=== PATIENT | female | born 1960 | race Caucasian/White ===

== ENCOUNTER 2018-12-11 13:38 | Outpatient (CLI) | payer BC ==
--- NOTE | 2018-12-11 14:02 | RAD ---
RADIOGRAPH LUMBAR SPINE 2 VIEWS: DATE: 12/11/2018 HISTORY: 58-year-old female with low back pain. FINDINGS: There are 5 lumbar-type vertebrae. Alignment is normal. Vertebral body heights and disc spaces are ma intained. There is no evidence of fracture, significant osteophytes, or any other focal osseous abnormality. IMPRESSION: Normal.
--- NOTE | 2018-12-11 14:13 | BD ---
EXAM: DEXA bone density examination HISTORY: 58-year-old postmenopausal female for screening COMPARISON: None FINDINGS: L1--bone mineral density 0.808 g/sq cm; T score -1.7 L2--bone mineral density 0.903 g/sq cm; T score -1.1 L3--bone mineral density 0.674 g/sq cm; T score -3.7 L4--bone mineral density 0.875 g/sq cm; T score -1.7 Total L1-L4--bone mineral density 0.817 g/sq cm; T score -2.1 Left femoral neck--bone mineral density0.601; T score -2.2 Total proximal left femur--bone mineral density 0.885; T score -0.5 IMPRESSION: Osteopenia This patient has a 10 year WHO fracture risk of a major osteoporotic fracture of 9.2% and of a hip fracture of 1.2%.
== END 2018-12-11 13:39 | disposition home or self-care (01) ==
LOC: BICMAMMO 13:38
PROVIDERS: ATTEND Internal Medicine Rheumatology
DX: M54.89 Other dorsalgia (principal); M81.0 Age-related osteoporosis without current pathological fracture; M85.859 Other specified disorders of bone density and structure, unspecified thigh
CPT/HCPCS: 72100; 77080

== ENCOUNTER 2019-01-23 12:56 | Outpatient (CLI) | payer BC ==
[2019-01-23 14:29] LABS: INR-International Normal Ratio 0.9; PTT 28.3 SEC (22.9-36.1); Prothrombin Time 12.5 SEC (12.0-14.7)
--- NOTE | 2019-01-26 23:10 | EKG ---
Test Reason : Blood Pressure : / mmHG Vent. Rate : 067 BPM Atrial Rate : 067 BPM P-R Int : 120 ms QRS Dur : 090 ms QT Int : 430 ms P-R-T Axes : 059 -11 072 degrees QTc Int : 454 ms Normal sinus rhythm Normal ECG Confirmed by JORDYN DENTON M.D. ([id number]) on 01/26/2019 11:09:43 PM Referred By: ANISHA Confirmed By:JORDYN DENTON M.D.
== END 2019-01-23 12:57 | disposition home or self-care (01) ==
LOC: LABBT 12:56
PROVIDERS: ATTEND Urology
DX: Z01.818 Encounter for other preprocedural examination (principal); N20.0 Calculus of kidney
CPT/HCPCS: 81001; 85610; 85730; 87086; 93005; 93010

== ENCOUNTER 2019-01-26 07:07 | Day surgery (SDC) | payer BC ==
[2019-01-23 13:00] VITALS: BMI 19.3
[2019-01-26] MEDS ORDERED: Iothalamate Meglumine 60% 50 ML VIAL FS ONE ×2 (07:19→09:25)
[2019-01-26] MEDS ORDERED: Levofloxacin 500 mg/D5W 100 ml Premix Bag ONE (07:41)
[2019-01-26] MEDS ORDERED: Fentanyl 100 MCG/2 ML VIAL ONE ×4 (08:27→11:44)
[2019-01-26] MEDS ORDERED: diphenhydrAMINE 50 MG/ML VIAL ONE (08:31)
[2019-01-26] MEDS ORDERED: Midazolam HCl 2 mg/2 ml Vial ONE (08:31)
[2019-01-26] MEDS ORDERED: Scopolamine 1.5 mg/72 hour Patch ONE (08:32)
[2019-01-26] MEDS ORDERED: PROPOFOL 20 ML ONE (08:42)
--- NOTE | 2019-01-26 09:37 | RAD ---
KUB: DATE: 01/26/2019. COMPARISON: None. HISTORY: Kidney stone. FINDINGS: Prior CT examination demonstrated a 6-7 mm stone within the mid right ureter at the level of the L4 v ertebral body. That calcification is not visualized on this exam. There are 2 probable tiny calcifi cations within the right upper quadrant measuring in the 2-3 mm range suggesting small intrarenal gil culi. No stones are seen in the left upper quadrant. IMPRESSION: Probable punctate calculi on the right. Previously noted ureteral calculus is not visualized on this examination. POS: [facility]
[2019-01-26] MEDS ORDERED: Phenazopyridine HCl 97.5 MG TABLET ONE (10:45)
[2019-01-26] MEDS ORDERED: Morphine 4 MG/ML VIAL ONE (12:20)
[2019-01-26] MEDS ORDERED: HYDROcodone/Acetaminophen 5/325 mg Tablet ONE ×2 (13:40→14:22)
[2019-01-26] MEDS ORDERED: Dexamethasone 20 MG/5 ML VIAL ONE (14:35)
[2019-01-26] MEDS ORDERED: PHENYLEPHRINE-NS 100 MCG/ML 10 ML SYRINGE ONE (14:35)
[2019-01-26] MEDS ORDERED: ePHEDrine 50 MG/ML VIAL ONE (14:35)
[2019-01-26] MEDS ORDERED: Succinylcholine Chloride 20 MG/ML 10 ml SYRINGE FS ONE (14:35)
[2019-01-26] MEDS ORDERED: Lidocaine 1% PF 5 ML VIAL ONE (14:35)
[2019-01-26] MEDS ORDERED: PROPOFOL 200 MG/20 ML VIAL ONE (14:35)
[2019-01-26] MEDS ORDERED: Ondansetron PF 4 MG/2 ML Vial ONE (14:35)
[2019-01-26] MEDS ORDERED: Calcium Chloride 1 GM/10 ML Abboject SYRINGE ONE (14:35)
--- NOTE | 2019-01-26 15:13 | OP ---
DATE OF PROCEDURE: 01/26/2019 PREOPERATIVE DIAGNOSIS: A 58-year-old female with right 7 mm L4 ureteral calculi, right mid pole 3 mm renal calculi, left punctate renal calculi. POSTOPERATIVE DIAGNOSIS: A 58-year-old female with right 7 mm L4 ureteral calculi, right mid pole 3 mm renal calculi, left punctate renal calculi. PROCEDURES PERFORMED: Cystoscopy, urethral calibration and dilatation, 18- Filipino Borjas catheter placement 2-way 10 mL to leg bag gravity bag, right ureteral dilation, right retrograde pyelogram, ureteroscopy flexible, pyeloscopy, laser lithotripsy of migrated right ureteral calculi to kidney , laser lithotripsy of renal calculi, basket extraction of stone debris, 6 x 22 double-J ureteral stent placement with distal tail in situ. ANESTHESIA: General. COMPLICATIONS: None apparent. DISPOSITION: To recovery room in stable condition. SPECIMEN: Stone for chemical analysis. INTRAOPERATIVE FINDINGS: 1. Urethral stenosis, and vaginal atrophy difficulty passing 22-Filipino scope, urethral calibration 14 to 16-Filipino, subsequently dilated with female dilators to 24. 2. Right proximal ureteral calculi migrated into the upper pole, treated successfully. INDICATIONS FOR THE PROCEDURE AND HISTORY: Ms Walsh is a 58-year-old female with history of recurrent kidney stone, previously underwent ESWL back in [id number] out of area, presented for evaluation of right flank pain, 7 mm proximal ureteral calculi, nonobstructing right renal calculi as above. She presents today for ureteroscopy, laser lithotripsy. She was fully informed regarding possibility of secondary procedure if unable to access the kidney, given her morbid obesity, and Hounsfield unit, advised regarding options of ureteroscopy versus ESWL. ESWL was discussed with the patient as an option, however, informed that the pain must be able to be easily visualized on KUB, which it is difficult to see. DESCRIPTION OF PROCEDURE: After an informed consent was signed, the patient taken to the operating room, placed in a dorsal lithotomy position with the genital area prepped and draped in the usual surgical sterile fashion. I attempted to pass a 22-Filipino cystoscope and she had severe vaginal atrophy with urethral stenosis. I gently passed a 17-Filipino rigid cystoscope under visual guidance. However, this was somewhat snug. We subsequently calibrated her urethra to about 14- and 16- Filipino and subsequently dilated to 24 with ease. Then, I was able to pass a 22-Filipino sheath without difficulty. The bladder was surveyed, which demonstrated no evidence of trabeculation, bladder stones or tumor of concern. Bilateral UOs in normal orthotopic position. Right ureter was intubated with a 5-Filipino open-ended catheter. Retrograde pyelogram performed demonstrating no gross filling defect per se. However, there was some hang up in the right L3-4 ureter consistent with likely stone. A 0.035 Sensor wire was placed into the right upper pole. At this time , we balloon dilated her intramural ureter in 2 segments with a 12-Filipino 4 cm [employer] apparatus. This was performed under fluoroscopic guidance atraumatically. Subsequently, we passed a 10-Filipino dual-lumen access sheath, which passed without significant issues to the level of L3 ureter. We passed a second safety wire 0.035 Super Stiff wire into the right upper pole. Subsequently, we passed an 11/13-Filipino x 28 navigator to the level of L3-L4 ureter. I was able to pass the sheath without significant issues, the flexible ureteroscope was then advanced over the Super Stiff wire. I did not see any obvious stone burden in the ureter itself. We surveyed the right collecting system demonstrating the stone did migrate into the upper pole. Using a 200 micron ball-tip fiber at energy of 0.7 joules, we laser lithotripsied the stone into multiple tiny fragments. There was a second nidus adherent to the papilla in the right mid pole which was laser lithotripsied successfully. Fragments were basket extracted, it was utilized with a VCharge basket. What remained were tiny fragments that most likely she will pass on her own dustlike debris. The ureter was surveyed, which demonstrated no evidence of ureteral stone nidus, or ureteral mucosa trauma of concern. A 6 x 22 double- J ureteral stent was then passed without significant issues and all wires were removed. As she does present with urethral stenosis, I left an 18-Filipino 10 mL urethral Borjas catheter to leg bag. She will follow up with me next week for catheter removal, stent pull under local. She is discharged with Bactrim DS one p.o. b.i.d., #24, so that we cover her until day of cysto stent pull. Myrbetriq 50 mg one p.o. daily #14 for bladder spasm, tramadol 50 mg 1 to 2 p.o. q.6 hours p.r.n., Azo p.r.n., Colace p.r.n. Note, she related a rash with Levaquin. We did provide Levaquin with her permission, which she did not have any adverse side effects of concern. She will follow up next for cysto stone pull catheter removal. Job ID: [id number] MTDD
--- NOTE | 2019-01-26 15:19 | RAD ---
RETROGRADE IVP: INDICATIONS: Intraoperative imaging during retrograde procedure and stent placement. TECHNIQUE: Two images are presented from the OR. FINDINGS: The first images shows partial opacification of the right collecting structures. The visualized right ureter was unremarkable. The second image shows a wire in the right ureter with the tip of the wire in the upper collecting structures of the right kidney. POS: [facility]
--- NOTE | 2019-01-29 16:03 | CON ---
DATE OF CONSULTATION: 01/26/2019 PRIMARY CARE PHYSICIAN: Dr. Wasserman. REASON FOR CONSULT: History of nausea, constipation, possible hallucination. HISTORY OF PRESENT ILLNESS: Ms. Walsh is a 58-year-old female with prior history of kidney stone, she underwent ESWL back in 2007 and 2008 in [place]. No subsequent surgery since then. She presented to the emergency room due to acute onset of right flank pain. CT demonstrating 7 mm proximal ureteral calculi. She underwent cysto; right ureteroscopy; laser lithotripsy; stone did migrate into the kidney, which was laser lithotripsied into tiny fragments successfully. Incidentally noted as she was found to have urethral stenosis, requiring dilation, in which her caliber was about 14-Montserr[place]ian. She did subsequently relate that she requires a "pediatric" catheter to instrument her urethra in the past. Surgery was uneventful. Due to her concern regarding ciprofloxacin and penicillin allergy, I did provide her dose with ciprofloxacin, which she tolerated well IV, however, was transitioned to Bactrim as an outpatient. She has an indwelling urethral Borjas catheter as her stricture urethral stenosis was dilated. She presents with the above complaints. She is currently hemodynamically stable, T-max is 99.3, she states that yesterday her temperature was 100.1. She has normal renal function, leukocytosis of 12 of not significant concern. UA is contaminated as it is obtained from the Borjas catheter with epithelials, positive nitrites. Cultures have been sent. She was provided Rocephin in the emergency room per ER doc. Currently, resting comfortably. States that she has been constipated, however, did have a loose bowel movement today. PAST MEDICAL HISTORY: Asthma, history of kidney stones, migraines, pneumonia, menorrhagia, bronchitis. PAST SURGICAL HISTORY: Uterine suspension in 1977, 1984, uterine ablation in August 2008, ESWL in [place] 2007 and 2008, sinus surgery, septoplasty, tonsillectomy. On January 26, 2019, she underwent cysto, urethral calibration and dilatation, right dilation of her ureter, ureteroscopy, laser lithotripsy of her migrated ureteral calculi into the kidney, a 6 x 22 double-J ureteral stent. ALLERGIES: ALLERGIC TO LEVAQUIN, RASH; TOPAMAX, KIDNEY STONES; PENICILLIN, HIVES; OXYBUTYNIN, SEVERE DRY EYES. SHE WAS ABLE TO TOLERATE CIPROFLOXACIN WITHOUT SIGNIFICANT ISSUES INTRAOPERATIVELY. CURRENTLY ON ROCEPHIN WITHOUT SIGNIFICANT ISSUES APPARENTLY. SOCIAL HISTORY: Nonsmoker. FAMILY HISTORY: Positive for asthma. PHYSICAL EXAMINATION: VITAL SIGNS: Stable. Temperature 99.3, blood pressure 168/72. GENERAL: Appears nontoxic appearing. HEENT: Grossly unremarkable. HEART: Regular rate. LUNGS: Clear. ABDOMEN: Morbidly obese, protuberant. No rigidity. No rebound. Vague suprapubic tenderness, however, this is minimal. : Borjas catheter is draining concentrated yellow urine. EXTREMITIES: No cyanosis, clubbing, or edema. PSYCHIATRIC: Appears to be appropriate and intact. No gross focal deficits appreciated. LABORATORY DATA: White count 12, hemoglobin 12. Creatinine is 1.0. UA demonstrates contaminated specimen, 7 to 10 epithelials, 11 to 20 wbc's, 20 to 50 rbc's, 100 protein, positive nitrites. Prior history of E coli in June 2017, which is pansensitive except to Bactrim and ampicillin. PERTINENT STUDIES: CT of the chest with contrast demonstrates no filling defect. This was obtained. She also complained of chest pain. CT of the abdomen and pelvis without contrast, which I reviewed myself, demonstrating right ureteral stent in good position. Tiny punctate right fragmented debris. No evidence of stone along the course of the right ureteral stent. Left punctate renal calculi. IMPRESSION: 1. Ms. Walsh is a 58-year-old female with history of recurrent kidney stone. 2. Status post right ureteroscopy, laser lithotripsy, urethral stenosis dilatation, therefore has an indwelling Borjas catheter. 3. vague chest pain. CT negative. with history of nausea and constipation. She states that with anesthesia, she usually has these events, i.e., constipation and nausea. The patient is currently being admitted for medical optimization with broad-spectrum antibiotics which I agree with Rocephin, may provide ciprofloxacin as she tolerated this uneventfully in the past. will await final culture, hydration. Expectant management with medical treatment is advised. Continue indwelling urethral Borjas catheter. Pending her clinical course. She is tentatively scheduled for outpatient cysto, right stent removal 02/05/19. Job ID: [id number] MTDD
[2019-01-30 11:11] LABS: CA Oxalate Dihydrate 10 % (.); CA Oxalate Monohydrate 85 % (.); Color Brown (.); Stone Weight 19.8 mg (.)
== END 2019-01-26 15:43 | disposition home or self-care (01) ==
LOC: SDC 07:07
PROVIDERS: ATTEND Urology
PROC: 0T768DZ Dilation of Right Ureter with Intraluminal Device, Via Natural or Artificial Opening Endoscopic (ICD-10-PCS; principal; 2019-01-26)
PROC: 0TF38ZZ Fragmentation in Right Kidney Pelvis, Via Natural or Artificial Opening Endoscopic (ICD-10-PCS; principal; 2019-01-26)
DX: N20.2 Calculus of kidney with calculus of ureter (principal); J18.9 Pneumonia, unspecified organism; J45.909 Unspecified asthma, uncomplicated; Z88.0 Allergy status to penicillin; Z88.7 Allergy status to serum and vaccine; Z88.8 Allergy status to other drugs, medicaments and biological substances; Z79.899 Other long term (current) drug therapy
CPT/HCPCS: 74018; 74420; 82365; 88300; C1758; C1769; J1200; J1956; J2250; J2270; J2704; J3010; J7620

== ENCOUNTER 2019-01-29 09:07 | Observation (INO) | payer BC ==
[2019-01-29] MEDS ORDERED: Acetaminophen 650 MG Suppository PR PRN (13:43)
[2019-01-29] MEDS ORDERED: Acetaminophen 325 MG TAB PO PRN (13:43)
[2019-01-29] MEDS ORDERED: Ondansetron PF 4 MG/2 ML Vial IVP PRN (13:43)
[2019-01-29] MEDS ORDERED: cefTRIAXone\\ROCEPHIN 1 GM in Sodium Chloride 0.9% 100 ML IVPB SCH (14:00)
[2019-01-29] MEDS: Sodium Chloride 0.9% 1,000 ML IV SCH ×2 (16:30→23:04)
--- NOTE | 2019-01-29 16:49 | HP ---
PRIMARY CARE PROVIDER: Danny Wasserman MD CHIEF COMPLAINT: Nausea and vomiting. HISTORY OF PRESENT ILLNESS: Ms. Walsh is a pleasant 58-year-old lady who was seen at [facility] on January 29, 2019. On January 26, 2019, she underwent cystoscopy, urethral calibration and dilatation, Borjas catheter placement, right retrograde pyelogram, ureteroscopy, laser lithotripsy, basket extraction of stone debris, and ureteral stent placement. She reports that following the procedure, she started having vomiting. She reports vomiting multiple times. She denies any fevers. She denies any chest pain. She denies any abdominal pain. She had normal bowel movement after the surgery. She is currently on Bactrim, but is unable to keep her medications down. She reports nausea. She has been vomiting 4 to 6 times per day. REVIEW OF SYSTEMS: All systems were reviewed and found to be negative except for pertinent positives mentioned above. PAST MEDICAL HISTORY: Hypothyroidism, fibromyalgia, osteoporosis, migraines, and nephrolithiasis. PAST SURGICAL HISTORY: Right knee replacement, right knee scope, tonsil surgery, sinus surgery, uterine ablation, and section. SOCIAL HISTORY: The patient denies tobacco use, alcohol use, or recreational drug use. FAMILY HISTORY: No family history of premature coronary artery disease. ALLERGIES: LYRICA AND PENICILLIN. CURRENT MEDICATIONS: 1. Losartan 50 mg daily. 2. Magnesium 500 mg daily. 3. Tizanidine p.r.n. 4. Gabapentin 100 mg daily. 5. Levothyroxine 75 mcg daily. 6. Venlafaxine 75 mg daily. 7. Verapamil 240 mg daily. 8. ProAir HFA 90 mcg inhalation daily. 9. Imitrex 100 mg daily. 10. [place] p.r.n. 11. Zofran p.r.n. 12. Pyridium 200 mg daily. 13. Toradol p.r.n. 14. Bactrim 2 times a day. PHYSICAL EXAMINATION: GENERAL: On examination, Ms. Walsh is awake and alert, not in acute distress. VITAL SIGNS: Blood pressure is 157/81, pulse 85, respiratory rate 18, and oxygen saturation 97% on room air. She is afebrile. EYES: No scleral icterus, no conjunctival pallor. ENT: Dry mucosal membranes. No oropharyngeal erythema or exudates. NECK: Supple, nontender, trachea is midline. RESPIRATORY: Accessory muscles of breathing are not active. Chest wall movements are symmetric bilaterally. LUNGS: Clear to auscultation without wheeze, rhonchi, or crepitations. CARDIOVASCULAR: S1 and S2 are heard, regular. Peripheral pulses palpable. ABDOMEN: Soft, distended, and nontender. Bowel sounds heard. NEUROLOGIC: Cranial nerves 2 through 12 are intact. MUSCULOSKELETAL: Power is 5/5 in all 4 extremities. SKIN: No rashes. LYMPHATIC: No cervical lymphadenopathy. PSYCHIATRIC: Normal mood, normal affect, the patient is oriented to person, place, and time. LABORATORY DATA: Ms. Walsh' labs and investigations were reviewed. She has leukocytosis with 12,100 white cells, of which 76% are neutrophils. Hemoglobin is normal. Platelet count is normal. She has normal electrolytes and normal creatinine. LFTs are normal. Urinalysis is positive for nitrite and leukocyte esterase and blood. She also has 4+ bacteria in high-power field. She had a CT angiogram of the chest, which did not show any filling defects in the pulmonary arteries. ASSESSMENT AND PLAN: Ms. Walsh is a pleasant 58-year-old lady who was seen at [facility] on January 29, 2019. Her problem list includes: 1. Sepsis: Ms. Walsh is presenting with sepsis, with heart rate greater than 90, leukocytosis and suspected urinary tract infection. She will be admitted to the hospital for further management. 2. Urinary tract infection: She has received a dose of ceftriaxone, which I will continue. We will await urine cultures. Urology Service has been consulted for opinion and help with management. 3. Nausea and vomiting: We will start the patient on parenteral antiemetics and intravenous fluids. 4. Hypothyroidism: Continue Synthroid. 5. Hypertension: Resume home medications, monitor vital signs, and titrate antihypertensives as needed. Many thanks for allowing me to participate in your patient's care. Please feel free to contact me with any questions or concerns. LEVEL OF RISK: Moderate. LEVEL OF COMPLEXITY: Moderate. Job ID: [id number]
[2019-01-29] MEDS ORDERED: Bisacodyl 10 MG SUPP PR PRN (17:02)
[2019-01-29] MEDS ORDERED: traMADol HCl 50 MG TAB PO PRN ×2 (17:04→18:40)
[2019-01-29 17:08] VITALS: BMI 38.7
[2019-01-29] MEDS ORDERED: Lorazepam 1 MG TAB PO PRN (18:40)
[2019-01-29] MEDS ORDERED: PROVENTIL INHALER 6.7 G (200 INHALATIONS) INH PRN (18:40)
[2019-01-29] MEDS: Docusate 100 MG CAP PO SCH (20:51)
[2019-01-29] MEDS: Trospium 20 MG TAB PO SCH (20:52)
[2019-01-29] MEDS ORDERED: Gabapentin 300 MG CAP PO SCH (21:00)
[2019-01-29] MEDS ORDERED: Losartan 25 MG TAB PO SCH (21:00)
[2019-01-30 05:42] LABS: #Basophils 0.1 thou/uL (0.0-0.2); #Eosinphils 0.4 thou/uL (0.0-0.7); #Lymphocytes 2.1 thou/uL (1.20-3.40); #Monocytes 0.8 thou/uL (0.11-0.59); #Neutrophils 5.6 thou/uL (1.40-6.50); %Basophils 0.8 % (0.0-1.0); %Eosinophils 4.3 % (0.0-10.0); %Lymphocytes 23.3 % (21.0-51.0); %Monocytes 9.3 % (0.0-10.0); %Neutrophils 62.3 % (42.0-75.0); Hemoglobin 12.4 g/dL (12.0-16.0); Mean Corpuscular HGB CONC 31.7 g/dL (32.0-36.0); Mean Corpuscular Hemoglobin 26.3 pg (27.0-31.0); Mean Corpuscular Volume 82.9 fL (78.0-98.0); Mean Platelet Volume 7.8 fL (7.4-10.4); Platelet Count 284 thou/uL (130-400); RBC Distribution Width 14.7 % (11.5-14.5); Red Blood Cell (RBC) Count 4.71 mill/uL (4.20-5.40); White Blood Cell (WBC) Count 8.9 thou/uL (4.8-10.8)
[2019-01-30 06:09] LABS: Anion Gap 11 mmol/L (10-20); BUN (Urea Nitrogen) 6 mg/dL (9.8-20.1); Calc. Creatinine Clearance 154 mL/min (70-130); Calcium 8.1 mg/dL (7.8-10.44); Carbon Dioxide 26 mmol/L (22-29); Chloride 108 mmol/L (98-107); Estimated GFR-MDRD Greater than 90; Glucose 90 mg/dL (70-105); Potassium 3.7 mmol/L (3.5-5.1); Sodium 141 mmol/L (136-145)
--- NOTE | 2019-01-30 07:54 | PRG ---
DATE OF SERVICE: 01/30/2019 SUBJECTIVE: The patient feeling better, has some dry mouth. Denies chills, significant flank pain of concern. OBJECTIVE: VITAL SIGNS: Stable. She is afebrile, 2811 in, 2300 out. Urine output is dilute, clear. ABDOMEN: Soft, nontender, nondistended. No rigidity. No rebound. LABORATORY DATA: White count decreased from 12 to 8.9, creatinine 0.5. Urine culture at 24 hours is negative growth. IMPRESSION AND PLAN: Ms. Walsh is a 58-year-old female with history of right ureteral and renal calculi, status post right ureteroscopy, laser lithotripsy, ureteral stent placement, dilatation of urethral stricture, indwelling Borjas catheter continues to be draining to gravity. The patient came in with history of nausea, vague chest pain, CT of the chest negative, nausea resolved. As urine culture is preliminary negative, I informed patient that from my perspective, patient can be discharged. As she failed outpatient Bactrim, recommend Omnicef 300 mg one p.o. b.i.d. for 10 to 14 days. The patient has appointment with me next , February 05, for cysto stent pull, urethral Borjas catheter removal. The patient states that she would like to be discharged today. From my perspective, she can, if medically cleared. Please discharge the patient with Omnicef 300 mg one p.o. b.i.d., Colace, bowel regimen , Zofran p.r.n. for nausea. I did provide her with leg bag at bedside, please transition to leg bag gravity bag use when she is discharged. will sign off, call if questions or concerns. Dr. Bull covering me this weekend. Job ID: [id number] MTDD
[2019-01-30] MEDS ORDERED: cefTRIAXone\\ROCEPHIN 1 GM in Sodium Chloride 0.9% 100 ML IVPB SCH (08:00)
[2019-01-30] MEDS ORDERED: Enoxaparin Sodium 40 MG/0.4 ML SYRINGE SC SCH (09:00)
[2019-01-30] MEDS ORDERED: Venlafaxine HCl XR 75 MG CAP PO SCH (09:00)
[2019-01-30] MEDS ORDERED: Gabapentin 100 MG CAP PO SCH (09:00)
[2019-01-30] MEDS: Docusate 100 MG CAP PO SCH (09:30)
[2019-01-30] MEDS: Trospium 20 MG TAB PO SCH (09:32)
[2019-01-30] MEDS: Sodium Chloride 0.9% 1,000 ML IV SCH (09:39)
[2019-01-30 15:10] VITALS: BP 125/69; TEMP 98.5
[2019-01-31] MEDS ORDERED: Levothyroxine Sodium 75 MCG TAB PO SCH (06:00)
--- NOTE | 2019-01-31 18:34 | DIS ---
DATE OF ADMISSION: 01/29/2019 DATE OF DISCHARGE: 01/30/2019 CONDITION ON DISCHARGE: Stable. DISCHARGE INSTRUCTIONS: 1. The patient is recommended to complete a full course of oral antibiotics. 2. The patient is recommended to follow up with Urology in the outpatient clinic in the next 1 to 2 weeks. 3. The patient is recommended to follow up with primary care physician in the next 5 to 7 days. 4. The patient is recommended to continue all other home medications as directed. REASON FOR HOSPITALIZATION: Urinary tract infection. SIGNIFICANT FINDINGS: The patient is found to have acute urinary tract infection and was selected specific antibiotics by Urology including, 1. Cefdinir 300 mg one tablet p.o. q.12 hours. 2. Zofran 8 mg one tablet p.o. t.i.d. p.r.n. nausea or vomiting. Please see full discharge medication list for details. HOSPITAL COURSE: Ms. Walsh is a pleasant 58-year-old female, who presented to [facility] on 01/29/2019, with urinary tract infection and altered mental status. The patient was seen by her urologist, Dr. Seo, please see full consultation and progress notes for details. With maximum medical therapy, the patient did respond to antibiotics and was recommended safe for discharge by Urology with outpatient followup. The patient was discharged in stable condition and oral antibiotics were sent to her preferred pharmacy. The patient recommended to follow up with Urology in the next 1 to 2 weeks. The patient is recommended to follow up with primary care physician in the next 5 to 7 days. The patient is recommended to return to acute care hospital immediately if signs or symptoms return, worsen, or any other new symptoms occur. Greater than 33 minutes spent coordinating care and discharge process for this patient. Job ID: [id number]
== END 2019-01-30 16:11 | disposition home or self-care (01) ==
LOC: ERS 09:07 → ERHOLD 11:25 → T4-B 16:28
PROVIDERS: ADMIT Internal Medicine; ATTEND Internal Medicine
DX: A41.9 Sepsis, unspecified organism (principal); N39.0 Urinary tract infection, site not specified; R11.2 Nausea with vomiting, unspecified; E03.9 Hypothyroidism, unspecified; I10 Essential (primary) hypertension; M79.7 Fibromyalgia; M81.0 Age-related osteoporosis without current pathological fracture; G43.909 Migraine, unspecified, not intractable, without status migrainosus; Z79.899 Other long term (current) drug therapy; Z88.0 Allergy status to penicillin; Z88.8 Allergy status to other drugs, medicaments and biological substances
CPT/HCPCS: 36415; 80048; 85025; 87086; 94760; 96361; 96372; 96374; 99285; G0378; J0696; J1650; J3490

== ENCOUNTER 2019-06-11 14:42 | Outpatient (CLI) | payer BC ==
--- NOTE | 2019-06-11 15:29 | RAD ---
KUB: 06/11/2019 COMPARISON: 01/26/2019 HISTORY: Evaluate for kidney stones FINDINGS: Body habitus and significance fecal material within the colon limits detailed assessment. N o discrete calcification is seen within the right or left upper quadrant. The bowel gas pattern appears nonobstructed. IMPRESSION: No radiographic evidence of significant renal stone disease. Please note that body habitu s and the amount of fecal material within the colon limits detailed assessment.
--- NOTE | 2019-06-11 15:52 | ULT ---
BILATERAL RENAL ULTRASOUND: HISTORY: Renal calculi. Stent placement, which stent has been removed. FINDINGS: The right kidney measures 10.4 cm in length and the left kidney measures 10.5 cm in length. No focal mass or hydronephrosis is seen on either side. Cortical echogenicity and thickness is normal. No s hadowing calculi are noted in the ureters or the urinary bladder. Bilateral ureteral jets are seen w ithin the urinary bladder. The urinary bladder has a volume of 34 cc and is grossly unremarkable. IMPRESSION: Unremarkable exam. POS: [facility]
== END 2019-06-11 14:43 | disposition home or self-care (01) ==
LOC: BICULT 14:42
PROVIDERS: ATTEND Urology
DX: N20.0 Calculus of kidney (principal)
CPT/HCPCS: 36415; 74018; 76770; 80048; 81001; 83970; 84550; 87086

== ENCOUNTER 2020-01-21 09:07 | Outpatient (CLI) | payer BC ==
--- NOTE | 2020-01-21 11:33 | CT ---
CT NECK WITH AND WITHOUT CONTRAST: (Parathyroid protocol) DATE: 01/21/2020 HISTORY: [id number] with hyperparathyroidism. TECHNIQUE: Precontrast scan, 25 seconds postcontrast scan, and 65 second postcontrast scan, from several centime ters inferior to the azale to the skull base. Coronal and sagittal reconstructions. FINDINGS: On the noncontrast portion of the CT, there is a low iodine content in the thyroid gland, and therefo re that noncontrast scan is not very useful for distinguishing thyroid tissue from parathyroid adenomas. No good candidate for parathyroid adenoma is identified. Tortuous, retropharyngeal courses of bilateral carotid arteries No significant pathology identified. IMPRESSION: Negative. No parathyroid adenoma identified.
[2020-01-21] MEDS ORDERED: Iopamidol 370 76% 100 ML VIAL ONE (14:39)
[2020-01-22 11:06] LABS: Estimated GFR-MDRD - POC Greater than 90
== END 2020-01-21 09:08 | disposition home or self-care (01) ==
LOC: BICCT 09:07
PROVIDERS: ATTEND Specialist
DX: E21.3 Hyperparathyroidism, unspecified (principal)
CPT/HCPCS: 70492; 82565; Q9967

== ENCOUNTER 2021-11-06 12:55 | Outpatient (CLI) | payer BC | END 2021-11-06 12:56 | disposition home or self-care (01) | LOC: BICMAMMO 12:55 | PROVIDERS: ATTEND Internal Medicine Rheumatology | DX: M81.0 Age-related osteoporosis without current pathological fracture (principal); M85.851 Other specified disorders of bone density and structure, right thigh; M85.852 Other specified disorders of bone density and structure, left thigh | CPT/HCPCS: 77080 ==

== ENCOUNTER 2022-10-19 17:23 | Emergency (ER) | payer BC ==
[2022-10-19 18:02] LABS: Bacteria/HPF None Seen HPF (None Seen); Bilirubin Negative (Negative); Blood, Urine Negative (Negative); CAUTI Indications for Culture Pelvic or flank pain; Clarity Clear (Clear); Glucose, Urine (Dipstick) 70 mg/dL (Negative); Ketone, Urine 10 mg/dL (Negative); Leukocyte 75 Leu/uL (Negative); Nitrite Negative (Negative); Protein, Urine (Dipstick) Negative (Neg-Trace); RBC/HPF 0-3 HPF (0-3); Specific Gravity, Urine 1.007 (1.002-1.036); Squamous Epithelial None Seen HPF (0-3); Urobilinogen Normal mg/dL (Less than 2); WBC/HPF 0-3 HPF (0-3)
[2022-10-19 18:17] LABS: Urine Culture Reflex No No
[2022-10-19] MEDS ORDERED: Morphine 4 MG/ML VIAL ONE (18:20)
[2022-10-19 18:43] LABS: #Basophils 0.1 thou/uL (0.0-0.2); #Monocytes 1.1 thou/uL (0.11-0.59); #Neutrophils 11.8 thou/uL (1.40-6.50); %Basophils 0.6 % (0.0-1.0); %Eosinophils 0.1 % (0.0-10.0); %Lymphocytes 9.8 % (21.0-51.0); %Monocytes 7.2 % (0.0-10.0); %Neutrophils 80.7 % (42.0-75.0); Hemoglobin 13.9 g/dL (12.0-16.0); Mean Corpuscular HGB CONC 32.3 g/dL (32.0-36.0); Mean Corpuscular Hemoglobin 26.1 pg (27.0-31.0); Mean Corpuscular Volume 80.9 fl (78.0-98.0); Mean Platelet Volume 9.1 fL (7.4-10.4); Platelet Count 367 10x3/uL (130-400); RBC Distribution Width 14.5 % (11.5-14.5); Red Blood Cell (RBC) Count 5.33 mill/uL (4.20-5.40); White Blood Cell (WBC) Count 14.6 10x3/uL (4.8-10.8)
[2022-10-19] MEDS ORDERED: hydrALAZINE 20 MG/ML VIAL ONE (18:49)
[2022-10-19] MEDS ORDERED: Promethazine HCl 12.5 MG in Sodium Chloride 0.9% 50 ML IVPB SCH (19:00)
[2022-10-19 19:06] LABS: ALT (SGPT) 10 U/L (8-55); AST (SGOT) 13 U/L (5-34); Albumin 3.7 g/dL (3.4-4.8); Alkaline Phosphatase 98 U/L (40-110); Anion Gap 17 mmol/L (10-20); BUN (Urea Nitrogen) 10 mg/dL (9.8-20.1); Bilirubin, Total 0.6 mg/dL (0.2-1.2); Calc. Creatinine Clearance 0 mL/min (70-130); Calcium 9.2 mg/dL (7.8-10.44); Carbon Dioxide 18 mmol/L (23-31); Chloride 107 mmol/L (98-107); Estimated GFR 90; Globulin 2.7 g/dL (2.4-3.5); Glucose 143 mg/dL (80-115); Lipase 15 U/L (8-78); Potassium 3.1 mmol/L (3.5-5.1); Protein, Total 6.4 g/dL (5.8-8.1); Sodium 139 mmol/L (136-145)
[2022-10-19] MEDS ORDERED: Prochlorperazine 10 MG/2 ML VIAL IVP SCH (20:00)
[2022-10-19] MEDS ORDERED: diphenhydrAMINE 50 MG/ML VIAL ONE (20:12)
== END 2022-10-20 00:19 | disposition home or self-care (01) ==
LOC: ERS 17:23
DX: N13.2 Hydronephrosis with renal and ureteral calculous obstruction (principal); D72.829 Elevated white blood cell count, unspecified; E03.9 Hypothyroidism, unspecified
CPT/HCPCS: 36415; 74176; 80053; 81001; 83690; 85025; 87086; 96361; 96374; 96375; J0360; J0780; J1200; J2270; J2550

== ENCOUNTER 2023-03-12 13:06 | Outpatient (CLI) | payer MEDICARE, BC | END 2023-03-12 13:07 | disposition home or self-care (01) | LOC: SCSMRI 13:06 | DX: H81.11 Benign paroxysmal vertigo, right ear (principal); G43.109 Migraine with aura, not intractable, without status migrainosus | CPT/HCPCS: 70553; 82565 ==